=== PATIENT | female | born 1930 ===

== ENCOUNTER → 2019-07-02 | Outpatient (CLI) | payer OTHER ==
[~2019-07-02] VITALS: Ht 142.2 cm; Wt 68.0 kg
[~2019-07-02] MED LIST: ALEVE220 MG PO; BACLOFEN 10MG T10 MG PO; BACLOFEN20 MG PO; CELEXA20 MG PO; IRON325 PO; MAGOX 400400 MG PO; PREDNISONE 5 MG5 M1 PO; REQUIP3 MG PO; STOOL SOFTENER100 MG PO; VITAMIN D5000 UNIT PO
[2019-07-02 11:03] VITALS: BP 148/74
--- NOTE | 2019-07-02 11:52 | NUR ---
Pain Clinic Assessment: 1. History of Osteoarthritis: SPINE KNEES History of Rheumatoid Arthritis: NO 2. Height: 4 ft. 8 in. 142.2 cm. Weight: 150.0 lb. oz. 68.040 kg. Patient's BMI: 33.6 3. Vital Signs: BP: 148/74 Pulse: 72 Resp: 16 Temp: 02 Sat: 98 ECG Mon: 4. Pain Intensity: 8 5. Fall Risk: Dizziness: N Needs help standing or walking: Y Fallen in the last 3 months: Y Fall risk comments: 6. Patient on Blood Thinner: None 7. History of Hypertension: N 8. Opioid Therapy greater than 6 weeks: N Opiate Contract Signed: 9. Risk Assessment Tool Provided: 10. Functional Assessment Tool: 11. Recreational Drug Use: Never Drug Type: Tobacco Use: Never Smoker Tobacco Type: Amount or Packs/day: How Many Years: Alcohol Use: No Frequency: Quant:
--- NOTE | 2019-08-02 08:54 | HPC ---
[facility] [address] [place] [address] PAIN MANAGEMENT CONSULTATION Name: VINAY JUNE Room #: REG DOROTA Cinthia#: [id number] Admission: 07/02/19 ������������������ Attend Phys: Jeanne Gambino MD Discharge: ������������������ Date of : [birth year] Report #: [id number] THIS REPORT FOR: //name// CC: LAVERNE Gambino Physician staff DATE OF SERVICE: 07/02/2019 CHIEF COMPLAINT: Back pain and spinal stenosis. HISTORY OF PRESENT ILLNESS: The patient is an 88-year-old female who has been referred to the Pain Clinic for evaluation of chronic pain. She has noticed over the last 3 months of worsening of her pain. She describes her pain as very problematic. She can hardly walk. Her left side is worse than the right. She also suffers from restless leg syndrome. She is not sure of anything that makes it significantly worse, but it is constant, particularly with activity. The patient is somewhat better with pills for her restless leg syndrome. She describes her discomfort as continuous, periodic, throbbing and rates it as an 8/10. It is in the lower portion of her legs down into the calf, front and back on both sides. She finds that there continues to be a jerking sensation in her legs bilaterally down below her knees, down to the ankles. Pain is worse when she is standing for too long. Prolonged sitting is problematic as well. Sometimes the pain improves when she gets up and starts to walk and with use of Requip. ALLERGIES: No known drug allergies. CURRENT MEDICATIONS: Vitamin D 5000 units, magnesium 400 mg, Requip 3 mg, docusate, stool softener 100 mg, iron 325 mg, prednisone 5 mg daily, Celexa 20 mg, and Naprosyn 220 mg. PAST MEDICAL HISTORY: 1. Malignant neoplasm, upper outer quadrant breast. 2. Depression disorder. 3. Restless legs. 4. Essential hypertension. 5. Gastroesophageal reflux. 6. Gallstones. 7. Osteoarthritis. 8. Cervical spondylosis. 9. Vertigo. 10. Pelvic mass. PAST SURGICAL HISTORY: Tonsillectomy, total knee arthroplasty in 04/2007, bilateral. [facility] [address] [place] [address] PAIN MANAGEMENT CONSULTATION Name: VINAY JUNE Room #: REG [facility].#: [id number] Admission: 07/02/19 ������������������ Attend Phys: Jeanne Gambino MD Discharge: ������������������ Date of : [birth year] Report #: [id number] SOCIAL HISTORY: She is a housewife. REVIEW OF SYSTEMS: Generally good health, wears glasses, ringing in the ears, chronic sinus problems, shortness of breath, palpitations, fatigue and weakness, varicose veins, lightheadedness, on and off balance, numbness and tingling sensation, memory loss, nervousness, depression, anemia. LABORATORY DATA: MRI of the lumbar spine dated 06/03/2019, 1. L1-L2, there is mild degenerative disk bulge, posterior epidural lipomatosis and moderate ligamentum flavum thickening leads to [id number] central canal stenosis. There is moderate facet arthropathy bilaterally. There is moderate left and right mild neural foraminal stenosis. 2. L2-L3, there is mild anterolisthesis and mild generalized disk bulging. There is posterior epidural lipomatosis, severe ligamentum flavum thickening, severe left and moderate right facet arthropathy. The combination of findings leads to at least moderate central canal stenosis with bunching of the caudal equina nerves. There is severe left neural foraminal stenosis near the exiting L2 nerve root. There is mild right neural foraminal stenosis. 3. L3-L4, there is a grade 1 anterolisthesis and a mild generalized disk bulge. When combined with epidural lipomatosis area and severe bilateral ligamentum flavum thickening, there is severe central canal stenosis. There is severe bilateral facet arthropathy. There is severe right neural foraminal stenosis near the exiting L3 nerve root. There is [id number] left neural foraminal stenosis. There is moderate right, bilateral recess stenosis. 4. At L4-L5, there is a mild generalized disk osteophyte complex with congenital narrowing and moderate bilateral ligamentum flavum thickening. There is moderate central canal stenosis. Moderate bilateral and facet arthropathy is present and [id number] bilateral neural foraminal stenosis. 5. At L5-S1, there is a mild generalized bulging disk and mild central canal stenosis. There is moderate bilateral ligamentum flavum thickening and severe bilateral facet arthropathy. There is mild bilateral recess stenosis. PAIN CLINIC ASSESSMENT/PQRS: 1. History of osteoarthritis. The patient has osteoarthritic changes in her spine as well as her knees. She has not been treated for rheumatoid arthritis. 2. Height 4 feet 8 inches, weight 150 pounds, BMI 33.6. 3. Vital Signs: Blood pressure 148/74, pulse 72, respiratory rate 16, room air saturation 98%. 4. Pain intensity, 8/10. 5. Fall risk. The patient has not fallen in the last 3 months. 6. Blood thinner. The patient is not on a blood thinning medication. 7. Hypertension. The patient is not being treated for hypertension. 8. Opioids greater than 6 weeks. The patient receives her medication from one source. 9. Risk assessment tool, low for opioid use. [address] [address] PAIN MANAGEMENT CONSULTATION Name: VINAY JUNE Room #: REG DOROTA Diaz#: [id number] Admission: 07/02/19 ������������������ Attend Phys: Jeanne Gambino MD Discharge: ������������������ Date of : 10/06/[birth year] Report #: [id number] 10. Functional assessment tool, . 11. Recreational drugs. The patient has never used recreational drugs. 12. Tobacco: The patient has never smoked. 13. Alcohol. The patient denies use of alcoholic beverages. PHYSICAL EXAMINATION: GENERAL: The patient is a well-developed white female, appears her stated age of 88 years. She is alert and oriented x 3. Her affect is appropriate. Speech is fluent. HEENT: Normocephalic, atraumatic. HEART: Regular rate. ABDOMEN: Nontender. EXTREMITIES: Upper extremity muscle strength judged to be 4-/5, left and right side. The patient feels that she may have some signs and symptoms of a left-sided stroke greater than a year ago. The patient notes some numbness and tingling down in the lower portion of her legs bilaterally. She has poor balance. IMPRESSION: 1. Restless legs syndrome and pain in the lower extremities below the knees. 2. Malignant neoplasm, upper outer quadrant breast. 3. Depression disorder. 4. Essential hypertension. 5. Gastroesophageal reflux. 6. Gallstones. 7. Osteoarthritis. 8. Cervical spondylosis. 9. Vertigo. 10. Pelvic mass. RECOMMENDATIONS: We discussed treatment options with the patient. At this juncture, we will try a conservative approach. We will have the patient try a muscle relaxant, baclofen. Hopefully, this will not cause any additional problems with her balance. We will have the patient take one tablet b.i.d. She is taking 10 mg at this point. We will increase the dosage from 10 mg b.i.d. to 20 mg b.i.d. The patient will call us if she has any concerns. Hopefully by slowly increasing her medications, we were able to help her decrease the restless leg syndrome and discomfort she is experiencing. We would like to thank you for letting us participate in her care. We hope she continues to improve. ��������������������������������������������� <ELECTRONICALLY SIGNED> ���������������������������������������� By: Jeanne Gambino MD ��������������������������������������������� 08/02/19 [id number] Jeanne Gambino MD /nt
== END ==
LOC: PAIN 06:51
DX: M47.812 Spondylosis without myelopathy or radiculopathy, cervical region (principal); F32.9 Major depressive disorder, single episode, unspecified; I10 Essential (primary) hypertension; K21.9 Gastro-esophageal reflux disease without esophagitis; K80.20 Calculus of gallbladder without cholecystitis without obstruction; M19.90 Unspecified osteoarthritis, unspecified site; M48.00 Spinal stenosis, site unspecified; C50.419 Malignant neoplasm of upper-outer quadrant of unspecified female breast